=== PATIENT | female | born 1960 | race Caucasian/White ===

== ENCOUNTER → 2016-06-23 | Outpatient (REF) | LOC: WSOH 09:06 | DX: Z01.84 Encounter for antibody response examination (principal) ==

== ENCOUNTER → 2016-06-23 | Outpatient (REF) | LOC: WSOH 09:04 | DX: Z01.84 Encounter for antibody response examination (principal) ==

== ENCOUNTER 2019-02-23 19:35 | Emergency (ER) | END 2019-02-23 20:50 | disposition left against medical advice (07) | LOC: COL.ER 19:35 | DX: Z72.9 Problem related to lifestyle, unspecified (principal) ==